=== PATIENT | female | born 1995 | race Hispanic/Latino ===

== ENCOUNTER 2022-12-21 14:46 | Inpatient (IN) | payer SELFPAY ==
[2022-12-21] MEDS ORDERED: NS 0.9% w/ 20 MEQ KCL 1,000 ML ONE (15:36)
[2022-12-21] MEDS ORDERED: Dextrose 50% Abboject 50 ML SYRINGE ONE (15:56)
[2022-12-21] MEDS ORDERED: Calcium Carbonate 500 MG ChewTAB PO PRN ×2 (16:00→22:13)
[2022-12-21] MEDS ORDERED: Acetaminophen 325 MG TAB PO PRN ×2 (16:00→22:12)
[2022-12-21] MEDS ORDERED: Ondansetron PF 4 MG/2 ML Vial IVP PRN (16:00)
[2022-12-21] MEDS ORDERED: HYDROcodone/Acetaminophen 5/325 mg Tablet PO PRN (16:00)
[2022-12-21] MEDS ORDERED: Senokot S 8.6-50 MG TAB PO PRN (16:00)
[2022-12-21] MEDS ORDERED: NS 0.9% w/ 20 MEQ KCL 1,000 ML IV PRN ×2 (16:06)
[2022-12-21] MEDS ORDERED: Electrolyte Replacement Protocol 1 EACH IVPB ONE (16:06)
[2022-12-21] MEDS ORDERED: Dextrose 5 %-0.45 % NaCl 1,000 ML IV PRN (16:06)
[2022-12-21] MEDS ORDERED: Sodium Chloride 0.9% 1,000 ML IV PRN ×4 (16:06)
[2022-12-21] MEDS ORDERED: Electrolyte Replacement Protocol 1 EACH IVPB PRN (16:06)
[2022-12-21] MEDS ORDERED: Dextrose 5% in Water 1,000 ML IV PRN (16:07)
[2022-12-21] MEDS ORDERED: Dextrose 50% Abboject 50 ML SYRINGE SLOW IVP PRN ×2 (16:07→22:13)
[2022-12-21] MEDS ORDERED: Glucagon 1 MG/ML KIT IM PRN (16:07)
[2022-12-21] MEDS ORDERED: Promethazine HCl 12.5 MG in Sodium Chloride 0.9% 50 ML IVPB PRN ×3 (16:08→22:12)
[2022-12-21] MEDS ORDERED: D5 1/2 NS w/20 mEq KCL 1,000 ML ONE (16:24)
[2022-12-21] MEDS ORDERED: INSULIN REGULAR IN 0.9 % NACL 100 UNITS in Premix 1 BAG IVPB SCH (16:45)
[2022-12-21 17:18] VITALS: BMI 25.7
[2022-12-21 17:21] VITALS: BP 123/78; TEMP 98.7
[2022-12-21] MEDS ORDERED: FLU VACC QS2023-24(6MOS UP)/PF 60 MCG/0.5 ML SYRINGE IM ONE (17:45)
[2022-12-21 19:12] LABS: Anion Gap 17 mmol/L (10-20); BUN (Urea Nitrogen) 8 mg/dL (7.0-18.7); Calc. Creatinine Clearance 111 mL/min (70-130); Calcium 7.8 mg/dL (7.8-10.44); Carbon Dioxide 10 mmol/L (22-29); Chloride 110 mmol/L (98-107); Estimated GFR 105; Glucose 253 mg/dL (70-105); Potassium 3.9 mmol/L (3.5-5.1); Sodium 133 mmol/L (136-145)
[2022-12-21] MEDS: D5 1/2 NS w/20 mEq KCL 1,000 ML IV PRN (20:08)
[2022-12-21] MEDS: Famotidine/PF 20 mg/2ml Vial SLOW IVP SCH (20:11)
[2022-12-21] MEDS ORDERED: Famotidine/PF 20 mg/2ml Vial SLOW IVP SCH (21:00)
[2022-12-21] MEDS: Dextrose 50% Abboject 50 ML SYRINGE SLOW IVP PRN (22:06)
[2022-12-22] MEDS: D5 1/2 NS w/20 mEq KCL 1,000 ML IV PRN ×2 (00:30→05:03)
[2022-12-22] MEDS: Dextrose 50% Abboject 50 ML SYRINGE SLOW IVP PRN (02:15)
[2022-12-22 06:40] LABS: Anion Gap 13 mmol/L (10-20); BUN (Urea Nitrogen) Less than 4 mg/dL (7.0-18.7); Calc. Creatinine Clearance 127 mL/min (70-130); Calcium 8.1 mg/dL (7.8-10.44); Carbon Dioxide 15 mmol/L (22-29); Chloride 112 mmol/L (98-107); Estimated GFR 121; Glucose 184 mg/dL (70-105); Potassium 4.3 mmol/L (3.5-5.1); Sodium 136 mmol/L (136-145)
[2022-12-22] MEDS: Lantus 1000 UNITS/10 ML VIAL SC SCH ×2 (08:53→20:53)
[2022-12-22] MEDS: Famotidine/PF 20 mg/2ml Vial SLOW IVP SCH ×2 (08:53→20:53)
[2022-12-22] MEDS: Lactated Ringer's 1,000 ML IV SCH ×2 (10:58→17:48)
[2022-12-22] MEDS: HumaLOG 300 UNITS/3 ML VIAL SC PRN ×3 (11:49→21:03)
[2022-12-22] MEDS ORDERED: Lantus 1000 UNITS/10 ML VIAL SC SCH (21:00)
[2022-12-23] MEDS: Lactated Ringer's 1,000 ML IV SCH (03:18)
[2022-12-23 04:03] LABS: #Eosinphils 0.1 10x3/uL (0.0-0.5); #Monocytes 0.4 10x3/uL (0.0-1.1); #Neutrophils 3.4 10x3/uL (1.5-8.4); %Basophils 0.4 % (0.0-2.0); %Eosinophils 1.6 % (0.0-6.0); %Lymphocytes 50.3 % (18.0-47.0); %Monocytes 5.2 % (0.0-10.0); %Neutrophils 42.3 % (40.0-75.0); Hematocrit 36.8 % (34.9-44.5); Hemoglobin 12.5 g/dL (12.0-15.5); Mean Corpuscular Hemoglobin 29.2 pg (27.0-33.0); Mean Platelet Volume 10.3 fl (7.4-10.4); Platelet Count 209 10x3/uL (150-450); RBC Distribution Width 12.9 % (11.5-14.5); Red Blood Cell (RBC) Count 4.28 10x6/uL (3.90-5.03); White Blood Cell (WBC) Count 8.1 10x3/uL (3.5-10.5)
[2022-12-23 04:09] LABS: Anion Gap 13 mmol/L (10-20); BUN (Urea Nitrogen) Less than 4 mg/dL (7.0-18.7); Calc. Creatinine Clearance 152 mL/min (70-130); Calcium 8.5 mg/dL (7.8-10.44); Carbon Dioxide 20 mmol/L (22-29); Chloride 109 mmol/L (98-107); Estimated GFR 126; Glucose 67 mg/dL (70-105); Potassium 3.2 mmol/L (3.5-5.1); Sodium 139 mmol/L (136-145)
[2022-12-23] MEDS ORDERED: Potassium Chloride 20 MEQ TAB PO SCH (04:45)
[2022-12-23] MEDS: HumaLOG 300 UNITS/3 ML VIAL SC PRN ×2 (06:03→08:04)
[2022-12-23] MEDS: Famotidine/PF 20 mg/2ml Vial SLOW IVP SCH (08:23)
[2022-12-23] MEDS ORDERED: Lantus 1000 UNITS/10 ML VIAL SC SCH (09:00)
[2022-12-23 14:00] LABS: Hemoglobin A1c 9.8 % (4.0-6.0)
== END 2022-12-23 14:12 | disposition home or self-care (01) | DRG 639 ==
LOC: CSHERS 14:46 → CSHIMCU 16:50
PROVIDERS: ADMIT Family Medicine; ATTEND Family Medicine
DX: E10.10 Type 1 diabetes mellitus with ketoacidosis without coma (principal); F41.1 Generalized anxiety disorder; E87.6 Hypokalemia; D72.829 Elevated white blood cell count, unspecified; F43.10 Post-traumatic stress disorder, unspecified; Z79.899 Other long term (current) drug therapy; Z79.4 Long term (current) use of insulin
CPT/HCPCS: 36415; 36416; 80048; 83036; 85025; J1815; J3480; J7120; J7999; S0028